=== PATIENT | female | born 1985 | race Caucasian/White ===

== ENCOUNTER 2025-02-05 22:42 | Emergency (ER) | payer OTHER, SELFPAY ==
--- NOTE | ~2025-02-05 | XR_ITS ---
CLINICAL HISTORY: cough, fever --- Additional Notes or Special Instructions: 35 weeks , agree s to CXR covering abdomen Chest X-ray, 1 View COMPARISON: None FINDINGS: Right lower lung atelectasis or infiltrate. No pleural effusion. No pneumothorax. No cardiomegaly. No acute fracture. IMPRESSION: Right lower lung atelectasis or infiltrate. This document has been electronically signed by: Kashif Cano MD on 02/06/2025 04:07:39
[2025-02-05 22:51] VITALS: BP 128/71; PULSE 98; RESP 20; TEMP 36.8; O2SAT 96; BMI 38.3
[2025-02-05 23:35] LABS: Basophils Percent Auto 0.4 % (0-2); Eosinophils Absolute Auto 0.8 X10*3/uL (0.0-0.4); Eosinophils Percent Auto 10.6 % (0-4); Hemoglobin 10.2 g/dl (12.0-16.0); Imm Gran Abs Auto 0.03 X10*3/uL (0.00-0.03); Imm Gran Pct Auto 0.4 % (0.0-0.4); Lymphocytes Absolute Auto 1.9 X10*3/uL (1.2-4.9); Lymphocytes Percent Auto 26.8 % (20-40); MANUAL DIFF FLAG SCAN; Mean Corpuscular HGB Conc 32.9 g/dl (31.0-35.0); Mean Corpuscular Hemoglobin 25.1 pg (27.0-33.0); Mean Corpuscular Volume 76.4 fL (80.0-98.0); Mean Platelet Volume 10.5 fL (9.4-12.3); Monocytes Absolute Auto 0.5 X10*3/uL (0.1-1.2); Monocytes Percent Auto 6.7 % (2-11); Neutrophils Absolute Auto 3.9 x10*3/uL (2.0-8.3); Neutrophils Percent Auto 55.1 % (45-73); PLT CLUMP 1; Red Blood Count 4.06 X10*6/uL (4.20-5.50); Red Cell Distribution Width 15.8 % (11.0-16.0); SCAN SMEAR FLAG 1
[2025-02-05 23:43] LABS: Alanine Aminotransferase 10 U/L (0-31); Albumin Level 3.3 g/dL (3.5-5.0); Alkaline Phosphatase 121 U/L (39-117); Anion Gap 12 (12-20); Aspartate Amino Transferase 14 U/L (5-31); Bilirubin Direct < 0.2 mg/dL (0.0-0.5); Bilirubin Total 0.2 mg/dL (0.0-1.0); Blood Urea Nitrogen 8 mg/dL (9-16); Calcium 9.1 mg/dL (8.4-10.2); Carbon Dioxide 20 mmol/L (22-29); Chloride 112 mmol/L (96-108); Estimated Glomerular Filt Rate > 60; Glucose Random 151 mg/dL (60-115); Lipase 15 U/L (8-78); Platelet Count 193 X10*3/uL (160-400); Potassium 3.7 mmol/L (3.3-5.1); Sodium 140 mmol/L (135-145); Total Protein 6.5 g/dL (6.5-8.0); White Blood Count 7.1 X10*3/uL (4.8-10.8)
[2025-02-05 23:44] LABS: SLIDE REVIEW VERIFIED
[2025-02-06 00:01] LABS: Influenza A PCR NEGATIVE (Negative); Influenza B PCR NEGATIVE (Negative); Resp Syncy Virus RNA Qual PCR NEGATIVE (Negative); SARS COV2 PCR INHOUSE NEGATIVE (Negative)
--- NOTE | 2025-02-06 00:10 | ED_ITS ---
HPI - URI/Sore Throat General Chief Complaint: Upper Respiratory Symptoms Stated Complaint: coughing for 2 days 35 weeks preg sides hurt Time Seen by Provider: 02/05/25 23:55 Source: patient Mode of arrival: ambulatory Limitations: no limitations History of Present Illness ED Provider: Dr. Judy Polk HPI Narrative: Patient comes to the emergency room complaining of nonproductive cough for 2 days. Patient states that she is asthmatic. Patient does not have a primary care physician. Patient states that she does not have an inhaler at home and her wheezing has gradually been getting worse. Patient denies fever chills. Patient is 35 weeks of gestational age. She is currently a . Related Data Previous Rx's ?Medication ?Instructions ?Recorded albuterol sulfate 90 mcg/actuation 2 puff inhalation Q4-6H PRN 02/06/25 aerosol inhaler shortness of breath or wheezing #8.5 grams amoxicillin 500 mg capsule 500 mg PO TID 5 days #15 caps 02/06/25 azithromycin 250 mg tablet 250 mg PO DAILY 4 days #4 tabs 02/06/25 prednisone 50 mg tablet 50 mg PO DAILY #4 tabs 02/06/25 Allergies Allergy/AdvReac Type Severity Reaction Status Date / Time ibuprofen [From Motrin] Allergy Severe SWELLING Verified 02/05/25 22:54 morphine [MORPHINE] Allergy Intermediate RASH, Verified 02/05/25 22:54 rash,body swelling hydrocodone [HYDROCODONE] Allergy Mild RASH Verified 02/05/25 22:54 oxycodone [From Percocet] Allergy Mild RASH Verified 02/05/25 22:54 acetaminophen [Percocet] Allergy Unknown rash, body Verified 02/05/25 22:54 swelling Review of Systems 2 Review of Systems: Constitutional : No Weight loss, No Fever, No Chills, No Night Sweats, No Fatigue, No Malaise ENT/Mouth : No Hearing loss, No Ear Pain, No Nasal Congestion, No Sinus Pain, No Hoarseness, No sore throat, No Rhinorrhea, No Swallowing Difficulty Eyes: No Eye Pain, No Swelling, No Redness, No Foreign Body, No Discharge, No Vision Changes Cardiovascular : No Chest Pain, No SOB, No Dyspnea on Exertion, No Orthopnea, No Edema, No Palpitations Respiratory : Complaining of shortness of breath, wheezing, asthma exacerbation, does not have inhalers at home Gastrointestinal : No Nausea, No Vomiting, No Diarrhea, No Constipation, No abdominal Pain, No Hematochezia, No Melena Genitourinary : no irregular bleeding, No Dysuria, No Urinary Frequency, No Hematuria, No Urinary Incontinence, No Urgency, No Flank Pain, No Urinary Flow Changes, No Hesitancy Musculoskeletal : No joint pain, No Myalgias, No Joint Swelling Skin : No Skin Lesions, No rash Neuro : No Weakness, No Numbness, No Paresthesias, No Loss of Consciousness, No Dizziness, No Headache Psych : No Anxiety/Panic, No Depression, No SI/HI/AH/VH, No Social Issues, Heme/Lymph: No Bruising, No Bleeding,No Lymphadenopathy Endocrine : No Polyuria, No Polydipsia, No Temperature Intolerance [facility] Past Medical History Medical History (Updated 02/06/25 @ 04:31 by Judy oPlk MD) Asthma Social History Social History Advance Directives: No Advance Directives Information Provided: Yes Patient : Yes Physical Exam 2 Vital Signs: Vital Signs: Last Vital Signs Temp 97.6 F 02/06/25 00:29 Pulse 98 02/06/25 01:32 Resp 20 02/06/25 01:32 BP 102/53 L 02/06/25 00:29 Pulse Ox 96 02/06/25 00:29 O2 Del Method Room Air 02/06/25 00:29 BMI result Body Mass Index 38.3 Const: Other: Appearance: Alert. Oriented X3. No acute distress. Eyes: Pupils equal, round and reactive to light. ENT: Pharynx normal. Neck: Normal inspection. Neck supple. No lymph nodes noted. No crepitus CVS: Normal heart rate and rhythm. Pulses normal. Normal S1 and S2 Respiratory: No respiratory distress. Patient is wheezing bilaterally, fairly good air movement, actively coughing Abdomen: Soft and nontender. No rigidity. No distention. Skin: Skin warm and dry. Normal skin color. Normal skin turgor. Extremities: No lower extremity edema. No Lacerations. No Rash Neuro: Oriented X 3. No motor deficit. No sensory deficit. Moving all extremities. No slurred speech. CN 2 through 12 grossly intact Psych: calm, cooperative, normal affect Course Course Course Narrative: Patient is very congested, coughing quite a bit. I discussed with the patient that ideally we should get an x-ray to make sure that she is not developing pneumonia given her current presentation and symptoms. However, she is 35 weeks . Discussed with the patient that we can take the x-ray and covered her abdomen or avoid the extra all together. Patient states that she would prefer to rule out pneumonia and get the x-ray done. Brown protocol will be started Patient will be getting IV Solu-Medrol and magnesium. Medications Administered Discontinued Medications Generic Name Dose Route Start Last Admin Trade Name Freq PRN Reason Stop Dose Admin Albuterol Sulfate 2.5 mg/ 5 mg 02/06/25 01:29 02/06/25 01:32 Albuterol Sulfate 2.5 mg INHALE 02/06/25 01:30 2.5 mg ONCE ONE Administration Albuterol Sulfate 2.5 mg/ 0 mg 02/06/25 00:33 02/06/25 00:38 Albuterol/Ipratropium 3 ml INHALE 02/06/25 00:34 1 dose ONCE ONE Administration Magnesium Sulfate 2 gm in 50 mls @ 25 mls/hr 02/06/25 00:00 02/06/25 03:13 Magnesium Sulfate/H2o IV 02/06/25 01:59 Infused ONCE ONE Infusion Methylprednisolone Sodium Succinate 125 mg 02/06/25 00:00 02/06/25 00:57 Methylprednisolone Sod Succ 125 Mg Vial IVPUSH 02/06/25 00:01 125 mg ONCE ONE Administration Medical Decision Making Medical Decision Making [facility] Narrative: My interpretation of labs: Patient's white blood cell count 7.1. Chemistry within normal limits. Serology negative for influenza RSV and COVID Chest x-ray suspicious for possible right lower lobe pneumonia Patient was given the 1st dose of antibiotics here in the emergency room, amoxicillin and azithromycin. Patient has an appointment pending with her OBGYN this week. Differential Diagnosis Differential Diagnoses: The differential diagnosis associated with the presentation includes (Asthma, pneumonia, viral URI) Admission/Observation Consideration of admission/observation: Escalation of care including admission/observation considered (Given patient's labs and status, observation was considered) Lab Data [facility] Lab Attestation statement: I reviewed the patient's lab results. 02/05/25 23:19 02/05/25 23:19 Labs: Lab Results 02/05/25 Range/Units 23:19 WBC 7.1 (4.8-10.8) X10*3/uL RBC 4.06 L (4.20-5.50) X10*6/uL Hgb 10.2 L (12.0-16.0) g/dl Hct 31.0 L (37.0-47.0) % MCV 76.4 L (80.0-98.0) fL MCH 25.1 L (27.0-33.0) pg MCHC 32.9 (31.0-35.0) g/dl RDW 15.8 (11.0-16.0) % Plt Count 193 (160-400) X10*3/uL MPV 10.5 (9.4-12.3) fL Immature Gran % (Auto) 0.4 (0.0-0.4) % Neut % (Auto) 55.1 (45-73) % Lymph % (Auto) 26.8 (20-40) % [place] % (Auto) 6.7 (2-11) % Eos % (Auto) 10.6 H (0-4) % Baso % (Auto) 0.4 (0-2) % Lymph # (Auto) 1.9 (1.2-4.9) X10*3/uL [place] # (Auto) 0.5 (0.1-1.2) X10*3/uL Eos # (Auto) 0.8 H (0.0-0.4) X10*3/uL Baso # (Auto) 0.0 (0.0-0.2) X10*3/uL Abs Immat Gran (auto) 0.03 (0.00-0.03) X10*3/uL Absolute Neuts (auto) 3.9 (2.0-8.3) x10*3/uL Absolute Nucleated RBC 0.000 (0.0-0.012) X10*3/uL Nucleated RBC % (auto) 0.0 (0.0-0.2) /100WBC Smear Tech's Comments VERIFIED Sodium 140 (135-145) mmol/L Potassium 3.7 (3.3-5.1) mmol/L Chloride 112 H (96-108) mmol/L Carbon Dioxide 20 L (22-29) mmol/L Anion Gap 12 (12-20) BUN 8 L (9-16) mg/dL Creatinine 0.78 (0.5-1.4) mg/dL Estim Creat Clear Calc 123.0 Estimated GFR > 60 Random Glucose 151 H (60-115) mg/dL Calcium 9.1 (8.4-10.2) mg/dL Total Bilirubin 0.2 (0.0-1.0) mg/dL Direct Bilirubin < 0.2 (0.0-0.5) mg/dL AST 14 (5-31) U/L ALT 10 (0-31) U/L Alkaline Phosphatase 121 H (39-117) U/L Total Protein 6.5 (6.5-8.0) g/dL Albumin 3.3 L (3.5-5.0) g/dL Lipase 15 (8-78) U/L Influenza Type A (PCR) NEGATIVE (Negative) Influenza Type B (PCR) NEGATIVE (Negative) RSV RNA Qual (PCR) NEGATIVE (Negative) SARS-CoV-2 RNA (RT-PCR) NEGATIVE (Negative) Independent Interpretation I performed an independent interpretation of an: Plain X-Ray Radiology Impression Discussion of test interpretation with radiology: I have reviewed the radiologist's reading. Radiologist Impression: Right lower lung atelectasis or infiltrate. No pleural effusion. No pneumothorax. No cardiomegaly. No acute fracture. IMPRESSION: Right lower lung atelectasis or infiltrate. Critical Care Time Critical Care Time Critical Care Time: Yes Total Critical Care Time: 60 Attestation: I have personally provided critical care time. Time includes review of lab data, radiology results, discussion with consultants, and monitoring for potential decompensation. Intervention performed as documented. Discharge Plan Discharge Clinical Impression: Pneumonia of mother during , Asthma Patient Disposition: Home, Self-Care Instructions: Asthma (ED), Pneumonia (ED) Additional Instructions: Please follow-up with your primary care physician tomorrow. If you have any worsening or new symptoms, please return to the emergency room or call 911 Prescriptions: New amoxicillin 500 mg capsule 500 mg PO TID 5 Days Qty: 15 0RF azithromycin 250 mg tablet 250 mg PO DAILY 4 Days Qty: 4 0RF Rx Instructions: start on day 2 of therapy albuterol sulfate 90 mcg/actuation HFA aerosol inhaler 2 puff inhalation Q4-6H PRN (Reason: shortness of breath or wheezing) Qty: 8.5 0RF prednisone 50 mg tablet 50 mg PO DAILY Qty: 4 0RF Print Language: Kazakh
[2025-02-06 00:29] VITALS: BP 102/53; PULSE 94; RESP 21; TEMP 36.4; O2SAT 96
[2025-02-06] MEDS: Albuterol Sulfate 2.5 MG, Albuterol/Iprat 2.5/0.5MG 3 ML 3 ML INHALE (00:38)
[2025-02-06 00:39] VITALS: PULSE 100; RESP 20; O2SAT 97
[2025-02-06] MEDS: Magnesium Sulfate/H2O 2 GM/50 ML PIGGYBACK IV (00:56)
[2025-02-06 01:32] VITALS: PULSE 98; RESP 20; O2SAT 96
[2025-02-06] MEDS: Albuterol Sulfate 2.5 MG, Albuterol Sulfate (0.083%) 2.5 MG 5 MG INHALE (01:32)
[2025-02-06] MEDS: Azithromycin 500 MG TABLET PO (05:10)
[2025-02-06] MEDS: Amoxicillin 500 MG CAPSULE PO (05:10)
[2025-02-06 05:11] VITALS: BP 110/57; PULSE 97; RESP 16; TEMP 36.7; O2SAT 96
[2025-02-06 05:16] VITALS: BP 110/57; PULSE 97; RESP 16; TEMP 36.7; O2SAT 96
== END 2025-02-06 05:17 | disposition home or self-care (01) ==
PROVIDERS: Emergency Provider Emergency Medicine
DX: O99.513 Diseases of the respiratory system complicating pregnancy, third trimester (principal); J18.9 Pneumonia, unspecified organism; J45.909 Unspecified asthma, uncomplicated; Z3A.32 32 weeks gestation of pregnancy; Z03.818 Encounter for observation for suspected exposure to other biological agents ruled out
CPT/HCPCS: 0241U; 71045; 80048; 80076; 83690; 85025; 94640; 96365; 96366; 96375; 99285; J2919; J3475

== ENCOUNTER → 2025-02-06 | Outpatient (BNV) | payer OTHER, SELFPAY | PROVIDERS: Emergency Provider Emergency Medicine; Visit Provider Radiology Diagnostic Radiology | DX: J98.11 Atelectasis (principal) | CPT/HCPCS: 71045 ==

== ENCOUNTER 2025-07-28 01:55 | Emergency (ER) | payer OTHER, SELFPAY ==
--- NOTE | ~2025-07-28 | XR_ITS ---
CLINICAL HISTORY: sob CHEST X-RAY FRONTAL VIEW COMPARISON: 02/05/2025. FINDINGS: A single frontal view of the chest was performed. The patient is rotated to the right.Cardiac silhouette is accentuated by the portable technique. Lungs are again noted to be hyperinflated. No focal infiltrate or consolidation. Tiny right-sided pleural effusion is questioned. No pneumothorax. IMPRESSION: 1. A tiny right-sided pleural effusion is questioned. 2. No focal infiltrate or consolidation. No pneumothorax. This document has been electronically signed by: Buck Michaud M.D. on 07/28/2025 04:13:03
[2025-07-28 02:40] VITALS: BP 102/60; PULSE 98; RESP 20; TEMP 36.6; O2SAT 97; BMI 31.3
--- OUTSIDE RECORDS SUMMARY | 2025-07-28 02:48 | XMS_ITS | Clinical Summary ---
Author Organization [employer] Address [address] [facility] [address] [place] [address] Care Team Providers Care Billet Straightener Name Role Phone Unavailable Primary Care Provider Unavailabl e Immunizations Immunization Administration Dates Next Due Pfizer Covid-19 Vaccine 12+ Bivalent 12/16/2022 Social History Tobacco Use Types Packs/Day Years Used Date Smoking Tobacco: Never Assessed Comments Unknown Sex and Gender Information Value Date Recorded Sex Assigned at Female 06/24/2022 10:20 AM EDT Legal Sex Female 10:20 AM EDT Gender Identity Female 06/24/2022 10:20 AM EDT Sexual Orientation Straight 06/24/2022 10 :20 AM EDT Last Filed Vital Signs Vital Sign Reading Time Taken Comments Blood Pressure 120/70 07/28/2019 12:12 AM EST Pulse 76 07/28/2019 12:12 AM EST Temperature - - Respiratory Rate - - Oxygen Saturation - - Inhaled Oxygen Concentration - - Weight 94.3 kg (208 lb) 07/28/2019 12:12 AM EST Height 167.6 cm (5' 6 ) 07/28/2019 12:12 AM EST Body Mass Index 33.57 07/28/2019 12:12 AM EST Plan of Treatment Health Maintenance Due Date Last Done Comments Depression Screening 1984 SDOH Screening 1984 Disability Screening 1984 Alcohol/Substance Use Screening 1996 Tobacco Screening 1996 Family Planning (PISQ) 1999 HPV Vaccines (1 - 3-dose series) 1999 Hepatitis B Vaccines (1 of 3 - 19+ 3-dose series) 2003 Pneumococcal Vaccine: Pediatrics (0 to 5 Years) and At-Risk Patients (6 to 49) Years (1 of 2 - PCV) 2003 Pap Smear 2005 Cervical Cancer Screening 2014 HPV/Cotest 2014 Mammogram 2024 COVID-19 Vaccine ( - 2024-2 6 season) 2025 12/16/2022 Influenza Vaccine (#1) 2025 12/15/2012 DTaP/Tdap/Td Vaccines (4 - T d or Tdap) 01/17/2030 01/18/2020, 12/30/2013, 12/15/2012 Zoster Vaccines (1 of 2) 2034 RSV Patients and Patients Aged 60 years or older (1 - 1-dose 75+ series) 2059 HIV Screening Completed 07/28/2019 Hepatitis C Screening Completed 07/28/2019 HIB Vaccines Aged Out No longer eligi ble based on patient's age to complete this topic Hepatitis A Vaccines Aged Out No long er eligible based on patient's age to complete this topic IPV Vaccines Aged Out No longer eligi ble based on patient's age to complete this topic Meningococcal B Vaccine Aged Out No l onger eligible based on patient's age to complete this topic Meningococcal Vaccine Aged Out No [place] eligible based on patient's age to complete this topic RSV under 20 months Aged Out No longe r eligible based on patient's age to complete this topic Rotavirus Vaccines Aged Out No longer eligible based on patient's age to complete this topic Procedures Procedure Name Priority Date/Time Associated Diagnosis Comments ANISHA HISTORICAL HEPATITIS C ANTIBODY RFLX Routine 07/28/2019 3:20 PM EST ANISHA HISTORICAL HIV AB/AG Routine 07/28/2019 3:20 PM EST from Last 3 Months or Most Recently Relevant to Health Maintenance Results * HEPATITIS C ANTIBODY RFLX (07/28/2019 3:20 PM EST) HEPATITIS C ANTIBODY NONREACTIVE NONREACTIVE [facility] Comment: Antibodies to HCV not detected; does not exclude early acute HCV infection. 07/28/2019 3:20 PM EST us Faoroq Vincent MD HISTORICAL/NON ORDERABLE KHUSHBOO PATE Final Result [facility] [address] * HIV AB/AG (07/28/2019 3:20 PM EST) [facility] HIV AG/AB NONREACTIVE [facility] Comment: HIV-1 p24 Ag and/or HIV-1/HIV-2 Ab not detected. A test result that is nonreactive does not exclude the possibility of exposure to or infection with HIV-1 and/or HIV-2. Nonreactive results in this assay for individuals with prior exposure to HIV-1 and/or HIV-2 may be due to antigen and antibody levels that are below the limit of detection of this assay. The [employer] HIV Ag/Ab Combo assay result and supplemental assay results should be interpreted in conjunction with the patient's clinical presentation, history and other laboratory results. If the results are inconsistent with clinical evidence, additional testing is suggested to confirm the result. 07/28/2019 3:20 PM EST us Farooq Vincent MD HISTORICAL/NON ORDERABLE KHUSHBOO PATE Final Result [facility] [address] from Last 3 Months or Most Recently Relevant to Health Maintenance Insurance STANDARD
--- OUTSIDE RECORDS SUMMARY | 2025-07-28 02:48 | XMS_ITS | Encounter Summary ---
Author Organization [employer] Address [address] [facility] [address] [place] [address] Care Team Providers Care Marine Operations Coordinator Name Role Phone Unavailable Primary Care Provider Unavailabl e Encounter Details Date Type Department Care Team (Late st Contact Info) Description 11/11/2024 Orders Only [facility] [address] [place] [address] Janeen Guido RN Screening for tuberculosis (Primary Dx) Social History Tobacco Use Types Packs/Day Years Used Date Smoking Tobacco: Never Assessed Comments Unknown Sex and Gender Information Value Date Recorded Sex Assigned at Female 06/24/2022 10:20 AM EDT Legal Sex Female 10:20 AM EDT Gender Identity Female 06/24/2022 10:20 AM EDT Sexual Orientation Straight 06/24/2022 10 :20 AM EDT documented as of this encounter Plan of Treatment Not on file documented as of this encounter Visit Diagnoses Diagnosis Screening for tuberculosis- Primary Screening examination for pulmonary tuberculosis documented in this encounter
--- OUTSIDE RECORDS SUMMARY | 2025-07-28 02:48 | XMS_ITS | Clinical Summary ---
Author Organization [facility] Address [address] [place] [address] Care Team Providers Care Purchasing Buyer Name Role Phone Unavailable Primary Care Provider Unavailabl e Social History Tobacco Use Types Packs/Day Years Used Date Smoking Tobacco: Never Assessed Comments Unknown Sex and Gender Information Value Date Recorded Sex Assigned at Not on file Legal Sex Female 4:56 PM EST Gender Identity Not on file Sexual Orientation Not on file Obstetrics History Plan of Treatment Health Maintenance Due Date Last Done Comments Breast Cancer Screening 1984 DTaP,Tdap,and Td Vaccines (1 - Tdap) 2003 Hepatitis B Vaccines (1 of 3 - 19+ 3-dose series) 2003 Cervical Cancer Screening: P ap Smear 2005 HPV Vaccines (1 - 3-dose SCD M series) 2011 Depression Screening 08/25/2024 COVID-19 Vaccine ( - 2024-2 6 season) 2025 Influenza Vaccine (#1) 2025 RSV Immunization Adult Patie nts (1 - 1-dose 75+ series) 2059 HIB Vaccines Aged Out No longer eligi ble based on patient's age to complete this topic Hepatitis A Vaccines Aged Out No long er eligible based on patient's age to complete this topic IPV Vaccines Aged Out No longer eligi ble based on patient's age to complete this topic MMR Vaccines Aged Out No longer eligi ble based on patient's age to complete this topic Meningococcal ACWY Vaccine Aged Out N o longer eligible based on patient's age to complete this topic Meningococcal B Vaccine Aged Out No l onger eligible based on patient's age to complete this topic Pneumococcal Vaccine: Pediat rics (0 to 5 Years) and At-Risk Patients (6 to 49 Years) Aged Out No longer eligible b ased on patient's age to complete this topic RSV Immunization Patients Un li 20 months Aged Out No longer eligible b ased on patient's age to complete this topic Varicella Vaccines Aged Out No longer eligible based on patient's age to complete this topic
[2025-07-28 03:07] LABS: IDNOW Serial# 6674DD1D; Strep A Nucleic Acid Negative (Negative)
[2025-07-28 03:30] LABS: Resp Syncy Virus RNA Qual PCR NEGATIVE (Negative); SARS COV2 PCR INHOUSE NEGATIVE (Negative)
[2025-07-28 03:56] LABS: Hematocrit 39.1 % (37.0-47.0); Hemoglobin 12.6 g/dl (12.0-16.0); Imm Gran Abs Auto 0.02 X10*3/uL (0.00-0.03); Imm Gran Pct Auto 0.2 % (0.0-0.4); Lymphocytes Absolute Auto 3.3 X10*3/uL (1.2-4.9); MANUAL DIFF FLAG NO; Mean Corpuscular HGB Conc 32.2 g/dl (31.0-35.0); Mean Corpuscular Hemoglobin 23.9 pg (27.0-33.0); Mean Corpuscular Volume 74.2 fL (80.0-98.0); NRBC Abs Auto 0.000 X10*3/uL (0.0-0.012); NRBC Pct Auto 0.0 /100WBC (0.0-0.2); Platelet Count 346 X10*3/uL (160-400); Red Blood Count 5.27 X10*6/uL (4.20-5.50); White Blood Count 9.9 X10*3/uL (4.8-10.8)
--- NOTE | 2025-07-28 04:12 | ED.GENADULT ---
HPI - General Adult General Chief complaint: Upper Respiratory Symptoms Stated complaint: flu like Time Seen by Provider: 07/28/25 04:12 History of Present Illness ED Provider: Isabelle DAILEY narrative: The patient is a 40-year-old woman with a history of asthma who has been sick for about a week with a cough in his sense of shortness of breath and a sense that her asthma is acting up. She has had a sore throat and body aches. She says that she has a rib pains that she attributes to her asthma and her shortness of breath. Other people in her house has been sick with respiratory symptoms as well. She has 4 children at home, a 4-month-old, a 5-year-old, a 10-year-old, and an 11-year-old. All of these children were brought to the emergency room tonight as well for evaluation of the respiratory symptoms. Two of the children have tested positive for strep throat. Related Data Previous Rx's ?Medication ?Instructions ?Recorded albuterol sulfate 90 mcg/actuation 2 puff inhalation Q4-6H PRN 02/06/25 aerosol inhaler shortness of breath or wheezing #8.5 grams amoxicillin 500 mg capsule 500 mg PO TID 5 days #15 caps 02/06/25 azithromycin 250 mg tablet 250 mg PO DAILY 4 days #4 tabs 02/06/25 prednisone 50 mg tablet 50 mg PO DAILY #4 tabs 02/06/25 azithromycin 250 mg tablet 250 mg PO DAILY 4 days #4 tabs 07/28/25 budesonide-formoterol HFA 160 2 puff inhalation BID #10.2 grams 07/28/25 mcg-4.5 mcg/actuation aerosol inhaler prednisone 20 mg tablet 20 mg PO DAILY #12 tabs 07/28/25 Allergies Allergy/AdvReac Type Severity Reaction Status Date / Time ibuprofen (From Motrin) Allergy Severe SWELLING Verified 07/28/25 02:42 morphine (MORPHINE) Allergy Intermediate RASH, Verified 07/28/25 02:42 rash,body swelling hydrocodone (HYDROCODONE) Allergy Mild RASH Verified 07/28/25 02:42 oxycodone (From Percocet) Allergy Mild RASH Verified 07/28/25 02:42 acetaminophen (Percocet) Allergy Unknown rash, body Verified 07/28/25 02:42 swelling Review of Systems Review of Systems: Yes all other systems are reviewed and are negative [facility] Past Medical History Medical History (Updated 07/28/25 @ 05:07 by Mukund Walton MD) Asthma Physical Exam ED Vital Signs: Vital Signs - 24 hr 07/28/25 02:40 07/28/25 03:21 07/28/25 05:10 Temperature 97.9 F 97.6 F Pulse Rate 98 86 Respiratory Rate 20 16 Blood Pressure 102/60 114/57 L Pulse Oximetry 97 96 Oxygen Delivery Method Room Air Room Air Room Air 07/28/25 05:22 Temperature 97.6 F Pulse Rate 86 Respiratory Rate 16 Blood Pressure 114/57 L Pulse Oximetry 96 Oxygen Delivery Method Room Air BMI result Body Mass Index 31.3 Const Other: The patient is awake and alert. She looks mildly unwell but not acutely ill or in obvious distress. She is pleasant and cooperative. Orientation/consciousness: patient oriented x3 HENMT Other: The face is symmetrical. ?Mucous membranes moist. Posterior pharynx is unremarkable. Eyes Other: Pupils are round equal, conjunctivae are clear, extraocular movements intact Neck Neck: Yes normal visual inspection, Yes full ROM and Yes no lymphadenopathy Resp Other: The patient has diminished air entry bilaterally with a wheezes throughout. No julian increased work of breathing however. Cardio Rate: regular rate Rhythm: regular rhythm Heart sounds: S1 normal heart sound present and S2 normal heart sound present GI Other: Abdomen is soft and nontender Skin Other: The skin is dry and unremarkable Neuro General: patient oriented x3, tone normal, moves all extremities, no focal motor deficits and CN's II-XI intact bilaterally Extrem Other: There is no calf swelling or tenderness. No asymmetry. No peripheral edema. Medications Administered Discontinued Medications Generic Name Dose Route Start Last Admin Trade Name Camiloq PRN Reason Stop Dose Admin Azithromycin 500 mg 07/28/25 04:36 07/28/25 04:58 Azithromycin 500 Mg Tablet PO 07/28/25 04:37 500 mg ONCE ONE Administration Albuterol Sulfate 5 mg/ 0 mg 07/28/25 04:26 07/28/25 04:44 Albuterol/Ipratropium 3 ml INHALE 07/28/25 04:27 7.5 each ONCE ONE Administration Prednisone 60 mg 07/28/25 04:36 07/28/25 04:58 Prednisone 20 Mg Tablet PO 07/28/25 04:37 60 mg ONCE ONE Administration Medical Decision Making Medical Decision Making [facility] Narrative: The patient is a 40-year-old female with a history of asthma who presents with several days of respiratory symptoms and shortness of breath. She has 4 children who live at home with her all of whom have respiratory symptoms as well, 2 of these have tested positive for strep throat. The patient herself has tested negative for strep. Additionally the whole family has tested negative for COVID, RSV, and influenza. The patient has a negative chest x-ray. She also has a an unremarkable CBC and comprehensive metabolic panel. The patient was treated as if this is a case of asthmatic bronchitis. She was given a DuoNeb updraft treatment. She was given prednisone. She was also started on azithromycin. She seemed to feel somewhat better. I think she may be discharged on a course of prednisone and azithromycin. I have also sent a prescription for the inhaler budesonide-formoterol. She should follow up with the regular doctor or return to the ER if worse. Lab Data 07/28/25 03:51 07/28/25 03:51 Labs: Lab Results 07/28/25 07/28/25 Range/Units 02:47 03:51 WBC 9.9 (4.8-10.8) X10*3/uL RBC 5.27 D (4.20-5.50) X10*6/uL Hgb 12.6 D (12.0-16.0) g/dl Hct 39.1 D (37.0-47.0) % MCV 74.2 L (80.0-98.0) fL MCH 23.9 L (27.0-33.0) pg MCHC 32.2 (31.0-35.0) g/dl RDW 15.8 (11.0-16.0) % Plt Count 346 D (160-400) X10*3/uL MPV 9.1 L (9.4-12.3) fL Immature Gran % (Auto) 0.2 (0.0-0.4) % Neut % (Auto) 51.0 (45-73) % Lymph % (Auto) 33.7 (20-40) % Graham % (Auto) 5.7 (2-11) % Eos % (Auto) 8.9 H (0-4) % Baso % (Auto) 0.5 (0-2) % Lymph # (Auto) 3.3 (1.2-4.9) X10*3/uL Graham # (Auto) 0.6 (0.1-1.2) X10*3/uL Eos # (Auto) 0.9 H (0.0-0.4) X10*3/uL Baso # (Auto) 0.1 (0.0-0.2) X10*3/uL Abs Immat Gran (auto) 0.02 (0.00-0.03) X10*3/uL Absolute Neuts (auto) 5.1 (2.0-8.3) x10*3/uL Absolute Nucleated RBC 0.000 (0.0-0.012) X10*3/uL Nucleated RBC % (auto) 0.0 (0.0-0.2) /100WBC Sodium 142 (135-145) mmol/L Potassium 4.1 (3.3-5.1) mmol/L Chloride 109 H (96-108) mmol/L Carbon Dioxide 22 (22-29) mmol/L Anion Gap 15 (12-20) BUN 16 (9-16) mg/dL Creatinine 1.13 (0.5-1.4) mg/dL Estim Creat Clear Calc 75.7 Estimated GFR 53 Random Glucose 111 (60-115) mg/dL Calcium 10.6 H D (8.4-10.2) mg/dL Total Bilirubin 0.2 (0.0-1.0) mg/dL AST 17 (5-31) U/L ALT 28 (0-31) U/L Alkaline Phosphatase 83 (39-117) U/L Total Protein 7.5 (6.5-8.0) g/dL Albumin 4.5 (3.5-5.0) g/dL Influenza Type A (PCR) NEGATIVE (Negative) Influenza Type B (PCR) NEGATIVE (Negative) RSV RNA Qual (PCR) NEGATIVE (Negative) SARS-CoV-2 RNA (RT-PCR) NEGATIVE (Negative) S. pyogenes GrpA MER Negative (Negative) Discharge Plan Discharge Clinical Impression: Acute asthmatic bronchitis Patient Disposition: Home, Self-Care Instructions: Asthma (ED) Additional Instructions: You has been started on a course of prednisone for your asthma. Prednisone is a steroid medication that helps reduce the inflammation of asthma. Take this once a day. Also take the antibiotic azithromycin once a day. Please complete the whole course of 4 days of antibiotics. I have also sent a prescription for the inhaler budesonide-formoterol. You may take this as frequently as 2 puffs every 4 hours as needed. You may also take this when you are feeling better on a less frequent basis. You may take it 1 puff 2 times a day on days when you were feeling well. This should help keep your asthma from flaring up again. Please follow up with your regular doctor to discuss all of this. Return to the emergency room if you feel significantly worse. Prescriptions: New azithromycin 250 mg tablet 250 mg PO DAILY 4 Days Qty: 4 0RF Rx Instructions: start on day 2 of therapy prednisone 20 mg tablet 20 mg PO DAILY Qty: 12 0RF Rx Instructions: Take 3 tablets by mouth daily for 2 days then take 2 tablets by mouth daily for 3 days. budesonide-formoterol 160-4.5 mcg/actuation HFA aerosol inhaler 2 puff inhalation BID Qty: 10.2 0RF No Action amoxicillin 500 mg capsule 500 mg PO TID 5 Days Qty: 15 0RF azithromycin 250 mg tablet 250 mg PO DAILY 4 Days Qty: 4 0RF Rx Instructions: start on day 2 of therapy albuterol sulfate 90 mcg/actuation HFA aerosol inhaler 2 puff inhalation Q4-6H PRN (Reason: shortness of breath or wheezing) Qty: 8.5 0RF prednisone 50 mg tablet 50 mg PO DAILY Qty: 4 0RF Referrals: [facility] [Provider Group] Interventions: ED Discharge Assessment Last Done: 07/28/25 05:22 Discharge Date/Time: 07/28/25 05:22 Print Language: Tamazight
[2025-07-28 04:29] LABS: Alanine Aminotransferase 28 U/L (0-31); Albumin Level 4.5 g/dL (3.5-5.0); Alkaline Phosphatase 83 U/L (39-117); Anion Gap 15 (12-20); Aspartate Amino Transferase 17 U/L (5-31); Blood Urea Nitrogen 16 mg/dL (9-16); Calcium 10.6 mg/dL (8.4-10.2); Carbon Dioxide 22 mmol/L (22-29); Chloride 109 mmol/L (96-108); Creatinine Clr Calc Pharmacy 75.7; Estimated Glomerular Filt Rate 53; Potassium 4.1 mmol/L (3.3-5.1); Sodium 142 mmol/L (135-145); Total Protein 7.5 g/dL (6.5-8.0)
[2025-07-28] MEDS: Albuterol Sulfate 5 MG, Albuterol/Iprat 2.5/0.5MG 3 ML 3 ML INHALE (04:44)
[2025-07-28 05:10] VITALS: BP 114/57; PULSE 86; RESP 16; TEMP 36.4; O2SAT 96
[2025-07-28 05:22] VITALS: BP 114/57; PULSE 86; RESP 16; TEMP 36.4; O2SAT 96
== END 2025-07-28 05:22 | disposition home or self-care (01) ==
PROVIDERS: Emergency Provider Emergency Medicine
DX: J20.9 Acute bronchitis, unspecified (principal); J45.909 Unspecified asthma, uncomplicated; R07.89 Other chest pain
CPT/HCPCS: 36415; 71045; 80053; 85025; 87637; 87651; 99284

== ENCOUNTER → 2025-07-28 03:13 | Outpatient (BNV) | payer OTHER, SELFPAY | PROVIDERS: Emergency Provider Emergency Medicine; Visit Provider Radiology Diagnostic Radiology | DX: R06.02 Shortness of breath (principal) | CPT/HCPCS: 71045 ==